=== PATIENT | female | born 1990 | race Caucasian/White ===

== ENCOUNTER 2020-01-12 09:09 | Emergency (ER) | payer BC, OTHER ==
[2020-01-12] MEDS ORDERED: METOCLOPRAMIDE HCL INJ/PF 10 MG/2 ML SDV IV ONE (09:45)
[2020-01-12] MEDS ORDERED: DIPHENHYDRAMINE HCL 50 MG/ML VIAL IV ONE (09:45)
[2020-01-12] MEDS ORDERED: NORMAL SALINE 1000 ML 1,000 ML IV ONE (09:45)
[2020-01-12] MEDS ORDERED: KETOROLAC TROMETHAMINE INJ/PF 30 MG/1 ML SDV IV ONE (09:45)
--- NOTE | 2020-01-12 09:49 | ER Document Report ---
ED Headache - General Chief Complaint: Headache Stated Complaint: VOMITING,HEADACHE Time Seen by Provider: 01/12/20 09:35 Primary Care Provider: DAYAN ORTEGA MD [NO LOCAL MD] - Follow up as needed Notes: CHIEF COMPLAINT: Headache today with vomiting HPI: 29-year-old female with 15-year history of headaches that are considered migraine type per the patient presenting with a frontal headache also with some posterior characteristics that is sharp in nature consistent with her prior headaches that she considers to be migraine type. Patient had 2 episodes of vomiting this morning. Slight spots in the eyes which is also typical of her migraines. States she was initially diagnosed at [facility], has never had imaging. States both parents have chronic migraines. Patient normally on amitriptyline states that it did not help today as well as naproxen. ROS: See HPI - all other systems were reviewed and are otherwise negative Constitutional: no fever Eyes: no drainage, no blurred vision ENT: no runny nose, no sore throat Cardiovascular: no chest pain Resp: no SOB, no cough GI: + vomiting, no diarrhea, no abdominal pain : no dysuria Integumentary: no rash Allergy: no hives Musculoskeletal: no extremity pain or swelling Neurological: no numbness/tingling, no weakness, positive headache MEDICATIONS: I agree with the patient medications as charted by the RN. ALLERGIES: I agree with the allergies as charted by the RN. PAST MEDICAL HISTORY/PAST SURGICAL HISTORY: Reviewed and agree as charted by RN. SOCIAL HISTORY: Reviewed and agree as charted by RN. FAMILY HISTORY: No significant familial comorbid conditions directly related to patient complaint EXAM: Reviewed vital signs as charted by RN. CONSTITUTIONAL: Alert and oriented and responds appropriately to questions. Well-appearing; well-nourished HEAD: Normocephalic; atraumatic EYES: PERRL; Conjunctivae clear, sclerae non-icteric. Mild photophobia. Funduscopic exam does not reveal evidence of disc edema or hemorrhage ENT: normal nose; no rhinorrhea; moist mucous membranes; pharynx without lesions noted, no uvula edema or deviation, no tonsillar hypertrophy, phonation normal NECK: Supple without meningismus; non-tender; no cervical lymphadenopathy, no masses CARD: RRR; no murmurs, no clicks, no rubs, no gallops; symmetric distal pulses RESP: Normal chest excursion without splinting or tachypnea; breath sounds clear and equal bilaterally; no wheezes, no rhonchi, no rales, pulse oximetry 99% on room air not hypoxic ABD/GI: Normal bowel sounds; non-distended; soft, non-tender, no rebound, no guarding; no palpable organomegaly or masses. BACK: The back appears normal and is non-tender to palpation, there is no CVA tenderness EXT: Normal ROM in all joints; non-tender to palpation; no cyanosis, no effusions, no edema SKIN: Normal color for age and race; warm; dry; good turgor; no acute lesions noted NEURO: Moves all extremities equally; Motor and sensory function intact. Strength equal 5/5 bilateral upper and lower extremities. Sensation intact and equal bilateral upper and lower extremities. Alert and oriented x3 answering all questions appropriately with no slurred speech. PSYCH: The patient's mood and manner are appropriate. Grooming and personal hygiene are appropriate. MDM: 29-year-old female with longstanding history of migraine type headaches clinically diagnosed apparently. Has not had imaging previously I did discuss this with her I did offer imaging which might include CT or MRI and she declines at this time. She states that when they started her on sinus medication this year her headache symptoms improved significantly and she has only had 3 headaches in the last several years that are this bad. She is neurologically intact. We will give her migraine cocktail IV fluids and will reassess her. TRAVEL OUTSIDE OF THE [place] IN LAST 30 DAYS: No - Related Data Allergies/Adverse Reactions: No Known Allergies Allergy (Unverified 11/06/15 10:22) Past Medical History - Social History Smoking Status: Unknown if Ever Smoked Frequency of alcohol use: Rare Family History: Other - parents with chronic migrines Patient has homicidal ideation: No - Past Medical History Cardiac Medical History: Denies: Hx Heart Attack, Hx Hypertension Pulmonary Medical History: Denies: Hx Asthma Neurological Medical History: Denies: Hx Cerebrovascular Accident, Hx Seizures GI Medical History: Denies: Hx Hepatitis, Hx Hiatal Hernia, Hx Ulcer Infectious Medical History: Denies: Hx Hepatitis Past Surgical History: Denies: Hx Hysterectomy, Hx Mastectomy, Hx Open Heart Surgery, Hx Pacemaker Physical Exam - Vital signs Vitals: Temp Pulse Resp BP Pulse Ox 98.0 F 98 16 106/64 100 01/12/20 09:18 01/12/20 09:18 01/12/20 09:18 01/12/20 09:18 01/12/20 09:18 Course - Re-evaluation Re-evalutation: 01/12/20 11:08 Patient is ambulatory with no difficulty. Remains alert and oriented x3 answering all questions appropriately. States headache is much better. Anticipate discharge home to follow-up with primary care provider who manages her headaches - Vital Signs Vital signs: Temp Pulse Resp BP Pulse Ox 98.0 F 98 16 106/64 100 01/12/20 09:18 01/12/20 09:18 01/12/20 09:18 01/12/20 09:18 01/12/20 09:18 Discharge - Discharge Clinical Impression: Migraine headache Qualifiers: Migraine type: unspecified Status migrainosus presence: without status migrainosus Intractability: not intractable Qualified Code(s): G43.909 - Migraine, unspecified, not intractable, without status migrainosus Vomiting Qualifiers: Vomiting type: unspecified Vomiting Intractability: non-intractable Nausea presence: with nausea Qualified Code(s): R11.2 - Nausea with vomiting, unspecified Condition: Stable Disposition: HOME, SELF-CARE Additional Instructions: Continue your previous medications for migraine headache. Take Zofran for any nausea vomiting. Follow-up with your primary care provider for reevaluation of your symptoms. If your headache worsens or you have recurrent vomiting return for reevaluation Prescriptions: Ondansetron [Zofran Odt 4 mg Tablet] 1 - 2 tab PO Q4H PRN #15 tab.rapdis PRN Reason: For Nausea/Vomiting Referrals: DAYAN ORTEGA MD [NO LOCAL MD] - Follow up as needed
[2020-01-12 11:28] VITALS: BP 108/70
== END 2020-01-12 11:26 | disposition home or self-care (01) ==
LOC: ER 09:09
DX: G43.909 Migraine, unspecified, not intractable, without status migrainosus (principal); R11.2 Nausea with vomiting, unspecified
CPT/HCPCS: 99284; 96361; 96374; 96375; J1200; J1885; J2765; J7030